=== PATIENT | female | born 1965 | race Caucasian/White ===

== ENCOUNTER → 2019-07-17 08:05 | Outpatient (BNVA) | payer OTHER, SELFPAY | PROVIDERS: Family Provider Nurse Practitioner; PCP Nurse Practitioner; Visit Provider Nurse Practitioner Family | DX: I10 Essential (primary) hypertension (principal); E66.9 Obesity, unspecified | CPT/HCPCS: 80053; 80061; 85025 ==

== ENCOUNTER → 2020-11-20 08:39 | Outpatient (BNVA) | payer OTHER, SELFPAY | PROVIDERS: Family Provider Nurse Practitioner; Visit Provider Family Medicine | DX: E78.5 Hyperlipidemia, unspecified (principal); E88.81 Metabolic syndrome and other insulin resistance; I10 Essential (primary) hypertension; J30.89 Other allergic rhinitis | CPT/HCPCS: 80053; 80061; 83036; 85025 ==

== ENCOUNTER → 2022-04-02 10:10 | Outpatient (BNVA) | payer OTHER, SELFPAY | PROVIDERS: Family Provider Nurse Practitioner; Visit Provider Family Medicine | DX: I10 Essential (primary) hypertension (principal); E88.81 Metabolic syndrome and other insulin resistance | CPT/HCPCS: 80053; 83036; 84443; 85025 ==

== ENCOUNTER → 2024-07-25 13:27 | Outpatient (BNVA) | payer OTHER, SELFPAY | PROVIDERS: Family Provider Nurse Practitioner; PCP Family Medicine; Visit Provider Family Medicine | DX: Z00.00 Encounter for general adult medical examination without abnormal findings (principal) | CPT/HCPCS: 80053; 80061; 83036; 85025 ==

== ENCOUNTER 2024-08-10 07:43 | Outpatient (CLI) | payer OTHER, SELFPAY ==
--- NOTE | 2024-08-10 08:00 | MM_ITS ---
WS: [id number] SCREENING DIGITAL BREAST TOMOSYNTHESIS MAMMOGRAM WITH CAD HISTORY: breast cancer screening COMPARISON: 02/21/2016 Bilateral CC and MLO with tomosynthesis and synthetic mammography submitted. Computer aided detection analyzed. Breast composition: There are scattered areas of fibroglandular density. New lobulated mass in the central LEFT breast just below the nipple line seen best on the CC projection. Mass measures 5 x 6 mm. No additional mass or calcifications. No distortion. MM/MM scr tomosynthesis 98003 IMPRESSION: BI-RADS: 0 - Incomplete: Need additional imaging evaluation. FOLLOW UP: Need Additional Imaging LEFT breast: Spot compression views (CC and MLO). True ML. Ultrasound to follow if abnormality persists.
== END 2024-08-10 07:44 | disposition home or self-care (01) ==
LOC: RAD 07:44
PROVIDERS: Family Provider Nurse Practitioner; PCP Family Medicine; Visit Provider Family Medicine
DX: Z12.31 Encounter for screening mammogram for malignant neoplasm of breast (principal); Z00.00 Encounter for general adult medical examination without abnormal findings; R92.323 Mammographic fibroglandular density, bilateral breasts; N63.20 Unspecified lump in the left breast, unspecified quadrant
CPT/HCPCS: 77063; 77067

== ENCOUNTER 2024-08-15 10:19 | Outpatient (CLI) | payer OTHER, SELFPAY ==
--- NOTE | 2024-08-15 10:25 | MM_ITS ---
WS: [id number] ADDITIONAL VIEWS LEFT MAMMOGRAM WITH DIGITAL BREAST TOMOSYNTHESIS. LEFT BREAST ULTRASOUND HISTORY: ABNORMAL MAMMO COMPARISON: 08/10/2024, 02/21/2016 LEFT MAMMOGRAM: Spot compression views and true ML with digital breast tomosynthesis and SM. Breast composition: There are scattered areas of fibroglandular density. Mass persist central to the nipple measuring 4 x 3 mm. This is at a middle depth and of slight increased density. No additional suspicious finding. LEFT BREAST ULTRASOUND 2-D and color Doppler imaging submitted. No abnormalities noted in the retroareolar region LEFT breast. MM/MM diag LT tomosynthesis 27615 IMPRESSION: BI-RADS: 3 - Probably Benign. FOLLOW UP: 6 Month Follow-up Recommended diagnostic LEFT mammogram follow-up in 6 months and possible ultras ound. Recommend 6-month evaluation of the new mass retroareolar LEFT breast. No t identifiable by ultrasound. May be a small lymph node.
== END 2024-08-15 10:20 | disposition home or self-care (01) ==
PROVIDERS: Family Provider Nurse Practitioner; PCP Family Medicine; Visit Provider Family Medicine
DX: R92.8 Other abnormal and inconclusive findings on diagnostic imaging of breast (principal); R92.322 Mammographic fibroglandular density, left breast; N63.20 Unspecified lump in the left breast, unspecified quadrant
CPT/HCPCS: 76642; 77061; G0279

== ENCOUNTER → 2024-09-25 09:27 | Outpatient (BNVA) | payer OTHER, SELFPAY | PROVIDERS: Family Provider Nurse Practitioner; PCP Family Medicine; Visit Provider Nurse Practitioner | DX: M65.4 Radial styloid tenosynovitis [de Quervain] (principal); W19.XXXA Unspecified fall, initial encounter | CPT/HCPCS: 73110 ==

== ENCOUNTER 2025-02-06 13:53 | Outpatient (CLI) | payer OTHER, SELFPAY ==
--- NOTE | 2025-02-06 14:00 | MM_ITS ---
WS: [id number] DIAGNOSTIC LEFT DIGITAL BREAST TOMOSYNTHESIS WITH CAD HISTORY: ABNORMAL MAMMO LT COMPARISON: 08/15/2024, 08/10/2024, 02/21/2016 Left craniocaudal, mediolateral oblique and medial lateral images are submitted with tomosynthesis and SM. Computer aided detection performed. Breast composition: There are scattered areas of fibroglandular density. No suspicious masses identified on today's mammogram. Previously described mass central to the nipple is no longer present. This may have been a cyst that has resolved. There are few benign calcifications. MM/MM diag LT tomosynthesis [id number] IMPRESSION: BI-RADS: 2 - Benign. FOLLOW UP: 1 Year Follow-up Return to annual screening mammography. Previously described nodule is no longe r present.
== END 2025-02-06 13:54 | disposition home or self-care (01) ==
LOC: RAD 13:55
PROVIDERS: Family Provider Nurse Practitioner; PCP Family Medicine; Visit Provider Family Medicine
DX: R92.8 Other abnormal and inconclusive findings on diagnostic imaging of breast (principal); R92.1 Mammographic calcification found on diagnostic imaging of breast
CPT/HCPCS: 77061; G0279